=== PATIENT | male | born 1980 | race Caucasian/White ===

== ENCOUNTER 2017-10-12 08:17 | Emergency (ER) | payer OTHER ==
[2017-10-12 08:18] VITALS: BMI 29.0
--- NOTE | 2017-10-12 09:19 | ED PDOC ---
Arrival/HPI - General Chief Complaint: Eye Problem Time Seen by Provider: 10/12/17 08:50 Historian: Patient - History of Present Illness Narrative History of Present Illness (Text): you were treated in the ED today for left upper eyelid swelling and discomfort for 3 days otherwise without any eye pain/change in vision/drainage/pain with moving eye/nausea/vomiting/headache/dizziness/difficulty breathing/chest pain/ abdomen pain/numbness/tingling/loss of limb function/pain with urination. Time/Duration: Other (3 days) Symptom Onset: Gradual Symptom Course: Unchanged Quality: Aching Severity Level: 1 Activities at Onset: Rest Context: Sitting Past Medical History - Provider Review Nursing Documentation Reviewed: Yes - Travel History Have you recently traveled outside [place] w/in the past 3 mons?: No - Infectious Disease Hx of Infectious Diseases: None - Past Medical History Past Medical History: No Previous - Cardiac Hx Cardiac Disorders: No - Psychiatric Hx Substance Use: No - Past Surgical History Past Surgical History: No Previous - Anesthesia Hx Anesthesia Reactions: No - Suicidal Assessment Feels Threatened In Home Enviroment: No Family/Social History - Physician Review Nursing Documentation Reviewed: Yes Family/Social History: Unknown Family HX Smoking Status: Unknown If Ever Smoked Hx Alcohol Use: Yes Frequency of alcohol use: Socially Hx Substance Use: No Hx Substance Use Treatment: No Allergies/Home Meds Allergies/Adverse Reactions: Allergies No Known Allergies Allergy (Verified 09/26/14 09:06) Review of Systems - Review of Systems Constitutional: Normal Eyes: Other (left upper eyelide pain/swelling) ENT: Normal Respiratory: Normal Cardiovascular: Normal Gastrointestinal: Normal Genitourinary Male: Normal Musculoskeletal: Normal Skin: Other (see eye) Neurological: Normal Endocrine: Normal Hemo/Lymphatic: Normal Psychiatric: Normal Physical Exam Vital Signs Reviewed: Yes Vital Signs Temp Pulse Resp BP Pulse Ox 10/12/17 08:57 98.0 F 78 17 141/90 98 10/12/17 08:35 98.3 F 76 18 130/86 99 Temperature: Afebrile Blood Pressure: Hypertensive Pulse: Regular Respiratory Rate: Normal Appearance: Positive for: Well-Appearing, Non-Toxic, Comfortable Pain Distress: None Mental Status: Positive for: Alert and Oriented X 3 - Systems Exam Head: Present: Atraumatic, Normocephalic Pupils: Present: PERRL Extroacular Muscles: Present: EOMI, Other ( left upper eyelid mild swelling with subtle redness but no pocket of softness, no pain with moving eye, no eye conjunctival redness, good vision in both eyes) Conjunctiva: Present: Normal Ears: Present: Normal Mouth: Present: Moist Mucous Membranes Pharnyx: Present: Normal Nose (External): Present: Atraumatic Nose (Internal): Present: Normal Inspection Neck: Present: Normal Range of Motion Respiratory/Chest: Present: Clear to Auscultation, Good Air Exchange Cardiovascular: Present: Regular Rate and Rhythm Abdomen: No: Tenderness, Distention, Normal Bowel Sounds, Peritoneal Signs, Rebound, Guarding, McBurney's Point Tender, Rovsing's Sign Present, Hernias, Feeding Tubes, Ostomy Tubes, Mass/Organomegaly, Scars, Other Back: Present: Normal Inspection Upper Extremity: Present: Normal Inspection Lower Extremity: Present: Normal Inspection Neurological: Present: GCS=15, CN II-XII Intact, Speech Normal, Motor Func Grossly Intact Skin: Present: Warm, Other (see extraoccular exam) Psychiatric: Present: Alert, Oriented x 3, Normal Insight, Normal Concentration Medical Decision Making ED Course and Treatment: you were treated in the ED today for left upper eyelid swelling and discomfort for 3 days otherwise without any eye pain/change in vision/drainage/pain with moving eye/nausea/vomiting/headache/dizziness/difficulty breathing/chest pain/ abdomen pain/numbness/tingling/loss of limb function/pain with urination. You were otherwise breathing easily, smiling and talking easily, good strength/ sensation, walking easily, clear lungs, no abdomen tenderness, left upper eyelid mild swelling with subtle redness but no pocket of softness, no pain with moving eye, no eye conjunctival redness, good vision in both eyes, no fever temp 98.3, stable heart rate 76, stable breathing rate 18, excellent oxygen level 99% room air, elevated blood pressure 130/86 which we recommend repeat in 2-3 days primary care office to determine further treatment, keflex, motrin, done in the ED with improvement, counselled to use warm compress 4-6 times per day over left upper eye lid to help open/drain oil glands and thus discharged home. 1. Recommend keflex as directed for infection control. 2. Recommend motrin as directed for pain control/inflammation control. 3. Recommend follow-up primary care 2-3 days to review symptoms and re-check to ensure improvement, ophthalmology referral as directed. 4. If any worsening pain , fever, chills, nausea, vomiting, difficulty breathing, numbness, loss of limb function, pain with urination or any medical condition then return to the ED. 10/12/17 09:19 Reassessment Condition: Re-examined, Improved Disposition/Present on Arrival - Present on Arrival Any Indicators Present on Arrival: No History of DVT/PE: No History of Uncontrolled Diabetes: No Urinary Catheter: No History of Decub. Ulcer: No History Surgical Site Infection Following: None - Disposition Have Diagnosis and Disposition been Completed?: Yes Diagnosis: Hordeolum externum left eye, unspecified eyelid Disposition: HOME/ ROUTINE Disposition Time: 09:24 Condition: IMPROVED Additional Instructions: you were treated in the ED today for left upper eyelid swelling and discomfort for 3 days otherwise without any eye pain/change in vision/drainage/pain with moving eye/nausea/vomiting/headache/dizziness/difficulty breathing/chest pain/ abdomen pain/numbness/tingling/loss of limb function/pain with urination. You were otherwise breathing easily, smiling and talking easily, good strength/ sensation, walking easily, clear lungs, no abdomen tenderness, left upper eyelid mild swelling with subtle redness but no pocket of softness, no pain with moving eye, no eye conjunctival redness, good vision in both eyes, no fever temp 98.3, stable heart rate 76, stable breathing rate 18, excellent oxygen level 99% room air, elevated blood pressure 130/86 which we recommend repeat in 2-3 days primary care office to determine further treatment, keflex, motrin, done in the ED with improvement, counselled to use warm compress 4-6 times per day over left upper eye lid to help open/drain oil glands and thus discharged home. 1. Recommend keflex as directed for infection control. 2. Recommend motrin as directed for pain control/inflammation control. 3. Recommend follow-up primary care 2-3 days to review symptoms and re-check to ensure improvement, ophthalmology referral as directed. 4. If any worsening pain , fever, chills, nausea, vomiting, difficulty breathing, numbness, loss of limb function, pain with urination or any medical condition then return to the ED. Prescriptions: Cephalexin [cephalexin] 500 mg PO Q6 7 Days #28 cap Ibuprofen [Motrin Tab] 800 mg PO Q8 PRN 10 Days #30 tab PRN Reason: Pain, Mild (1-3) Forms: [employer] ([place]), [employer] ([place]), WORK NOTE
[2017-10-12 09:59] VITALS: BP 125/72; PULSE 85; RESP 19; TEMP 98; O2SAT 99
== END 2017-10-12 09:58 | disposition home or self-care (01) ==
LOC: ED 08:17
DX: H00.014 Hordeolum externum left upper eyelid (principal)